=== PATIENT | female | born 1945 | race Caucasian/White ===

== ENCOUNTER 2023-09-20 14:57 | Emergency (ER) | payer OTHER, SELFPAY ==
[2023-09-20] VITALS (12 sets, daily range): BP systolic 121–145; BP diastolic 61–89; PULSE 69–106; RESP 15–23; TEMP 36.7–36.9; O2SAT 96–100
--- NOTE | 2023-09-20 15:01 | ECG_ITS ---
Measurements Intervals [place] Rate: 83 P: 71 PA: 190 QRS: -5 QRSD: 82 T: 37 QT: 381 QTc: 450 Interpretive Statements SINUS RHYTHM NONSPECIFIC T-WAVE ABNORMALITY- ANTERIOR LEADS BASELINE ARTIFACT- I, III BORDERLINE ECG NO PREVIOUS ECG AVAILABLE FOR COMPARISON Electronically Signed On 09-20-2023 15:50:38 CDT by Jerome Wallace D.O.
[2023-09-20 15:18] LABS: Basophils Percent Auto 0.4 % (0.2-1.2); Eosinophils Percent Auto 0.8 % (0-4.4); Hematocrit 34.3 % (37.0-47.0); Hemoglobin 11.1 g/dL (12.0-15.0); Lymphocytes Absolute Auto 2.03 K/mm3 (0.9-3.2); Lymphocytes Percent Auto 42.7 % (18.3-44.2); Mean Corpuscular HGB Conc 32.4 g/dl (32-36); Mean Corpuscular Hemoglobin 30.7 pg (26-34); Mean Platelet Volume 10.6 fl (7.4-10.4); Monocytes Absolute Auto 0.2 K/mm3 (0.1-0.6); Monocytes Percent Auto 4.8 % (2.6-8.5); Neutrophils Absolute Auto 2.4 K/mm3 (1.3-6.7); Neutrophils Percent Auto 51.3 % (45.5-73.1); Platelet Count Result 239 k/mm3 (150-375); Red Blood Count 3.61 M/mm3 (4.2-5.4); White Blood Count 4.8 K/mm3 (4.5-10.0)
--- NOTE | 2023-09-20 15:19 | ED.DIZZY ---
HPI - Dizziness General Chief Complaint: Syncope Stated Complaint: syncopy Time Seen by Provider: 09/20/23 15:02 History of Present Illness HPI Narrative: 78-year-old female presenting to the emergency department for evaluation after having a near syncopal episode while at the [employer]corn shop. Patient states she had been shopping with her daughter and had not had anything to eat or drink today. Patient states while she was in the shower but she had onset feeling warm and lightheaded. Patient did sit down and rested. Patient states she does not think that she had a loss of consciousness or passed out. Patient states after about 3-5 minutes he did begin to feel improved. Patient denies any associated chest pain or shortness of breath with this episode. Upon arrival to the emergency department patient states she feels improved, has no complaints and is pleasantly requesting to be discharged to home. Patient was willing to have labs checked. Related Data Allergies Allergy/AdvReac Type Severity Reaction Status Date / Time No Known Allergies Allergy Verified 09/20/23 15:35 Review of Systems Review of Systems: All systems reviewed & are unremarkable except as noted in HPI and below Exam Narrative: APPEARANCE: Well appearing, no pain, no distress, well-nourished. HEAD: normocephalic, atraumatic. EYES: PERRLA/EOMI, conjunctivae clear. NOSE: Normal no drainage NECK: Supple. No adenopathy, no masses. RESPIRATORY: Airway patent, respirations nonlabored. Clear to auscultation bilaterally, no rales, rhonchi, wheezing. CARDIOVASCULAR: Regular rate and rhythm without murmurs rubs or gallops. ABDOMINAL: Soft, nontender, nondistended, normal bowel sounds MUSCULOSKELETAL: Moves all extremities. Strength/ROM intact, No edema, No calf tenderness. NEURO: Alert. Cranial nerves II through XII intact. Grossly intact SKIN: Warm, dry. Normal Color Course Course Emergency Course: patient felt improved with treatment. Vital Signs Vital signs: Vital Signs Temperature 98.0 F 09/20/23 15:01 Pulse Rate 84 09/20/23 15:01 Respiratory Rate 20 09/20/23 15:01 Blood Pressure 127/73 09/20/23 15:01 Pulse Oximetry 96 09/20/23 15:01 Oxygen Delivery Room Air 09/20/23 15:01 Temperature 98.5 F 09/20/23 17:29 Pulse Rate 69 09/20/23 17:29 Respiratory Rate 15 09/20/23 17:29 Blood Pressure 135/70 09/20/23 17:29 Pulse Oximetry 100 09/20/23 17:29 Oxygen Delivery Room Air 09/20/23 15:01 MDM - Dizziness MDM Narrative Medical decision making narrative: 78-year-old female presented emergency department for evaluation having a near syncopal episode. Patient states she did not eat or drink this morning. Patient is afebrile with no leukocytosis and a stable hemoglobin CMP shows no acute abnormalities. Patient had normal prostatic vitals. Patient was encouraged to eat a more well-balanced diet. Patient's family was also present during this conversation. All questions concerns were addressed patient was well-appearing at time of discharge. Differential Diagnosis Differential diagnosis: Likely orthostatic hypotension Lab Data Attestation: I reviewed the patient's lab results. 09/20/23 15:12 09/20/23 15:12 Labs: Lab Results 09/20/23 Range/Units 15:12 WBC 4.8 (4.5-10.0) K/mm3 RBC 3.61 L (4.2-5.4) M/mm3 Hgb 11.1 L (12.0-15.0) g/dL Hct 34.3 L (37.0-47.0) % MCV 95.0 (80-100) fl MCH 30.7 (26-34) pg MCHC 32.4 (32-36) g/dl RDW 15.0 H (11.5-14.5) % Plt Count 239 (150-375) k/mm3 MPV 10.6 H (7.4-10.4) fl Immature Gran % (Auto) 0.0 (0-0.5) % Neut % (Auto) 51.3 (45.5-73.1) % Lymph % (Auto) 42.7 (18.3-44.2) % [place] % (Auto) 4.8 (2.6-8.5) % Eos % (Auto) 0.8 (0-4.4) % Baso % (Auto) 0.4 (0.2-1.2) % Lymph # (Auto) 2.03 (0.9-3.2) K/mm3 [place] # (Auto) 0.2 (0.1-0.6) K/mm3 Eos # (Auto) 0.0 (0-0.3) K/mm3 Baso # (Auto) 0.0 (0.0-0.1) K/mm3
[2023-09-20 15:26] LABS: Alanine Aminotransferase 14 U/L (6-35); Albumin Level 4.4 g/dL (3.5-5.1); Alkaline Phosphatase 100 U/L (38-126); Anion Gap 5 mmol/L (8-16); Aspartate Amino Transferase 26 U/L (14-36); Bilirubin,Total 0.5 mg/dL (0.2-1.3); Blood Urea Nitrogen 17 mg/dL (7-17); Calcium 9.8 mg/dL (8.4-10.2); Carbon Dioxide 28 mmol/L (22-30); Chloride 104 mmol/L (98-107); Estimated CRCL calculation 28 ml/min; Estimated Glomerular Filt Rate 36; Glucose 124 mg/dL (65-110); Potassium 3.1 mmol/L (3.4-5.0); Sodium 137 mmol/L (137-145)
== END 2023-09-20 17:25 | disposition home or self-care (01) ==
PROVIDERS: Emergency Medicine; Emergency Provider Emergency Medicine; PCP Internal Medicine
DX: R55 Syncope and collapse (principal)
CPT/HCPCS: 36415; 80053; 85025; 93005; 99284